=== PATIENT | male | born 1955 | race Caucasian/White ===

== ENCOUNTER 2018-06-11 08:09 | Observation (INO) | payer OTHER ==
[2018-06-07 10:42] VITALS: BP 142/103
[~2018-06-11] VITALS: Ht 182.9 cm; Wt 104.4 kg
[~2018-06-11 08:09] MED LIST: ASPI325T17 PO; ESOM20CA PO; ISOS30TA8 PO; PROP10TA16 PO; rosuvastatin PO
[2018-06-11] MEDS ORDERED: SODIUM CHLORIDE 0.9% 1,000 ML IV ONE (08:29)
[2018-06-11] MEDS ORDERED: ROSU10TA PO (08:30)
[2018-06-11] MEDS ORDERED: TEMA15CA PO (08:31)
[2018-06-11] MEDS ORDERED: MIDAZOLAM 1 MG/ML, 2ML ONE (09:10)
[2018-06-11] MEDS ORDERED: VERAPAMIL 2.5 MG/ML, 2ML ONE (09:11)
[2018-06-11] MEDS ORDERED: HEPARIN 1,000 UNITS/ML, 10ML ONE (09:11)
[2018-06-11] MEDS ORDERED: FENTANYL PF 100 MCG/2ML ONE (09:11)
[2018-06-11] MEDS ORDERED: DIPHENHYDRAMINE 50 MG/ML, 1ML ONE (09:11)
[2018-06-11] MEDS ORDERED: NITROGLYCERIN 5 MG/ML, 10ML ONE (09:33)
[2018-06-11] MEDS ORDERED: BIVALIRUDIN 250 MG ONE (09:50)
[2018-06-11] MEDS ORDERED: TICAGRELOR 90 MG TABLET ONE (09:50)
[2018-06-11] MEDS ORDERED: SODIUM CHLORIDE 0.9% 1,000 ML IV SCH (10:30)
[2018-06-11] MEDS: ISOSORBIDE MONONITRATE ER 30 MG TABLET PO SCH (10:55)
[2018-06-11] MEDS: PROPRANOLOL 10 MG TABLET PO SCH (10:56)
[2018-06-11] MEDS: PANTOPRAZOLE 20MG TABLET PO SCH (10:56)
[2018-06-11 13:30] VITALS: BP 135/83
[2018-06-11 19:33] VITALS: BP 156/98
[2018-06-11] MEDS ORDERED: TEMAZEPAM 15 MG CAPSULE PO SCH (21:00)
[2018-06-11] MEDS ORDERED: ATORVASTATIN 20 MG TABLET PO SCH (21:00)
[2018-06-11] MEDS: TICAGRELOR 90 MG TABLET PO SCH (21:20)
[2018-06-12 02:05] VITALS: BP 138/80
[2018-06-12] MEDS ORDERED: ASPIRIN 81 MG TABLET EC PO SCH (06:00)
[2018-06-12 07:25] VITALS: BP 147/90
[2018-06-12] MEDS: PANTOPRAZOLE 20MG TABLET PO SCH (07:30)
[2018-06-12] MEDS: TICAGRELOR 90 MG TABLET PO SCH (09:01)
[2018-06-12] MEDS: ISOSORBIDE MONONITRATE ER 30 MG TABLET PO SCH (09:01)
[2018-06-12] MEDS: PROPRANOLOL 10 MG TABLET PO SCH (09:01)
[2018-06-12] MEDS ORDERED: ASPI81TA45 PO (10:23)
[2018-06-12] MEDS ORDERED: TICA90TA PO (10:23)
== END 2018-06-12 11:40 | disposition home or self-care (01) ==
LOC: CACL 08:09 → 5SO 10:26 → CACL 06-12 11:36
PROVIDERS: ADMIT Internal Medicine Cardiovascular Disease; ATTEND Internal Medicine Cardiovascular Disease
DX: I25.10 Atherosclerotic heart disease of native coronary artery without angina pectoris (principal); E78.2 Mixed hyperlipidemia
CPT/HCPCS: 93458; 99156; 99157; C1725; C1769; C1874; C1887; C1894; C9600; G0378; J0583; J1200; J1644; Q9967; J2250; J3010

== ENCOUNTER 2021-02-18 09:31 | Day surgery (SDC) | payer OTHER ==
[~2021-02-18] VITALS: Ht 185.4 cm; Wt 101.0 kg
[2021-02-18 19:16] VITALS: BP 160/93
== END 2021-02-19 23:59 | disposition home or self-care (01) ==
LOC: CACL 09:31 → 5SO 13:49 → CACL 02-19 23:59
PROVIDERS: ATTEND Internal Medicine Cardiovascular Disease
DX: R94.39 Abnormal result of other cardiovascular function study (principal); I25.10 Atherosclerotic heart disease of native coronary artery without angina pectoris; F17.210 Nicotine dependence, cigarettes, uncomplicated; Z79.82 Long term (current) use of aspirin; Z79.899 Other long term (current) drug therapy